=== PATIENT | male | born 1990 | race Native Hawaiian/Other Pacific Islander ===

== ENCOUNTER 2022-02-12 04:17 | Emergency (ER) | payer OTHER ==
[~2022-02-12] VITALS: Ht 175.3 cm; Wt 54.4 kg
[2022-02-12 05:26] VITALS: BP 114/72; TEMP 98.6
== END 2022-02-12 05:26 | disposition home or self-care (01) ==
LOC: ED 04:17
DX: L03.113 Cellulitis of right upper limb (principal)
CPT/HCPCS: 99282; J1885